=== PATIENT | male | born 2000 | race African-American/Black ===

== ENCOUNTER 2023-01-28 09:39 | Emergency (ER) | payer BC ==
[~2023-01-28] VITALS: Ht 165.1 cm; Wt 160.0 kg
[2023-01-28] MEDS ORDERED: P50 MT (10:49)
[2023-01-28] MEDS ORDERED: AMOX-494 MT (10:49)
[2023-01-28] MEDS ORDERED: ONDA4TAB50 MT (10:49)
[2023-01-28] MEDS ORDERED: TOPUD MT (10:49)
[2023-01-28] MEDS ORDERED: IBUP-1523 MT (10:49)
[2023-01-28] MEDS ORDERED: ONDANSETRON 4MG ODT PO ONE (11:00)
[2023-01-28] MEDS ORDERED: AMOXICILLIN 500 MG CAPSULE PO ONE (11:00)
[2023-01-28] MEDS ORDERED: PREDNISONE 20MG TABLET PO ONE (11:00)
[2023-01-28 11:32] VITALS: BP 121/74
== END 2023-01-28 11:33 | disposition home or self-care (01) ==
LOC: ER 09:39
DX: J02.9 Acute pharyngitis, unspecified (principal)
CPT/HCPCS: 99284; J7512; Q0162